=== PATIENT | male | born 2000 | race Caucasian/White ===

== ENCOUNTER 2021-08-19 13:53 | Emergency (ER) | payer OTHER ==
[~2021-08-19] VITALS: Ht 188 cm; Wt 73.9 kg
[2021-08-19 13:57] VITALS: BP 154/90
--- NOTE | 2021-08-19 14:45 | NUR ---
21/M PRESENTS TO ED STATING HE HAD A RASH ON HIS HANDS AND FEET X1 WEEK AGO AND "BELIEVES HE HAD HAND FOOT AND MOUTH DISEASE." PATIENT REPORTS NOT BEING SEEN OR DX, PATIENT STATES RASH HAS SINCE RESOLVED BUT WANTS TO BE SEEN. PATIENT ALSO STATING "I FORGET TO BREATHE WHEN I SLEEP" DENIES SOB CP AT THIS TIME.
--- NOTE | 2021-08-19 15:25 | NUR ---
SEEN AND EXAMINED BY NADEEM JOHNSON
[2021-08-19 16:00] VITALS: BP 132/80
--- NOTE | 2021-08-19 16:00 | NUR ---
Patient discharged with v/s stable. Written and verbal after care instructions given and explained. Patient verbalized understanding. Ambulatory with steady gait. All questions addressed prior to discharge. Advised to follow up with PMD.
== END 2021-08-19 16:00 | disposition home or self-care (01) ==
LOC: MED 13:53
DX: Z00.00 Encounter for general adult medical examination without abnormal findings (principal); J45.909 Unspecified asthma, uncomplicated; F12.90 Cannabis use, unspecified, uncomplicated
CPT/HCPCS: 99281

== ENCOUNTER 2021-10-21 15:13 | Emergency (ER) | payer BC, OTHER ==
[~2021-10-21] VITALS: Ht 188 cm; Wt 80.7 kg
--- NOTE | 2021-10-21 15:15 | NUR ---
PT AMB TO BED 12.
[2021-10-21 15:22] VITALS: BP 148/85
--- NOTE | 2021-10-21 15:26 | NUR ---
21 y/o male bib self from work, pt presents to ed with redness, hives and swelling to face that radiates to general body with sob. pt states he was eating peanuts (states his ears sometimes swell with peanuts) and a protein bar before reaction happened. denies pain, states he is having mostly itching. a&ox4, ambulates with steady gait. lung sounds clear, no rhonchi noted, no wheezing. heart sounds even and tachy. pt is having tachypnea with sensation of anxiety. pmh: asthma allergy: shrimp med: denies
[2021-10-21] MEDS ORDERED: methylPREDNISolone SS 125 MG/2 ML VIAL IVP ONE (16:00)
[2021-10-21] MEDS ORDERED: FAMOTIDINE 20 MG/2 ML VIAL IVP ONE (16:00)
[2021-10-21] MEDS ORDERED: diphenhydrAMINE 50 MG/ML VIAL IVP ONE (16:00)
[2021-10-21] MEDS ORDERED: PRED20TA5 PO (17:02)
[2021-10-21] MEDS ORDERED: DIPH25TA53 PO (17:02)
[2021-10-21] MEDS ORDERED: FAMO-90 PO (17:02)
[2021-10-21] MEDS ORDERED: EPIN1KIT31 IM (17:02)
--- NOTE | 2021-10-21 17:40 | NUR ---
no hives or swelling present at this time. pt noted itching and sob have been relieved
[2021-10-21 18:09] VITALS: BP 108/51
--- NOTE | 2021-10-21 18:11 | NUR ---
Patient discharged with v/s stable. Written and verbal after care instructions given and explained. Patient alert, oriented and verbalized understanding of instructions. Ambulatory with steady gait. All questions addressed prior to discharge. ID band removed. Patient advised to follow up with PMD. Rx of diphenhydramine, epinephrine, famotidine, prednisone (sent) given. Patient educated on indication of medication including possible reaction and side effects. Opportunity to ask questions provided and answered. pt states he feels okay to drive, denies any drowsiness at this time
== END 2021-10-21 18:00 | disposition home or self-care (01) ==
LOC: MED 15:13
DX: T78.40XA Allergy, unspecified, initial encounter (principal); J45.909 Unspecified asthma, uncomplicated; Z91.013 Allergy to seafood; Z79.899 Other long term (current) drug therapy; X58.XXXA Exposure to other specified factors, initial encounter
CPT/HCPCS: 96374; 96375; 99284; J1200; J2930; J3490

== ENCOUNTER 2023-03-07 09:10 | Emergency (ER) | payer BC, OTHER ==
[~2023-03-07] VITALS: Ht 182.9 cm; Wt 81.6 kg
[~2023-03-07 09:10] MED LIST: DIPH25TA53 PO; EPIN1KIT31 IM; FAMO-90 PO; PRED20TA5 PO
[2023-03-07 09:36] VITALS: BP 123/69; PULSE 83; RESP 18; TEMP 98; O2SAT 98
[2023-03-07] MEDS ORDERED: IBUP-2213 PO (10:49)
[2023-03-07 11:14] VITALS: BP 123/69; PULSE 83; RESP 18; TEMP 98; O2SAT 98
== END 2023-03-07 11:11 | disposition home or self-care (01) ==
LOC: MED 09:10
DX: M79.89 Other specified soft tissue disorders (principal)
CPT/HCPCS: 99282